=== PATIENT | female | born 1945 | race Caucasian/White ===

== ENCOUNTER 2018-06-05 05:12 | Emergency (ER) | payer MEDICARE, OTHER ==
--- NOTE | 2018-06-05 05:52 | ER Document Report ---
ED Medical Screen (RME) - General Chief Complaint: Back Pain Stated Complaint: BACK PAIN Time Seen by Provider: 06/05/18 05:39 Mode of Arrival: Medic Information source: Patient Notes: Patient is a 72-year-old female who presents with chief complaint of low back pain. Patient reports history of chronic low back pain. Patient reports she took hydrocodone 5 mg at 1 AM with no relief. Patient denies direct trauma or any loss of bowel or bladder. Patient reports a similar episode occurred last after she tried moving some furniture. Patient reported that her pain eventually resolved with several doses of her hydrocodone. Patient reports this pain is no different than her usual pain. Exam: Tenderness to palpation across the lumbar spine. No neurological deficits noted. Equal strength in all extremities. Lung sounds clear to auscultation bilaterally. I have greeted and performed a rapid initial assessment of this patient. A comprehensive ED assessment and evaluation of the patient, analysis of test results and completion of the medical decision making process will be conducted by additional ED providers. Dictation of this chart was performed using voice recognition software; therefore, there may be some unintended grammatical errors. TRAVEL OUTSIDE OF THE [place] IN LAST 30 DAYS: No - Related Data Allergies/Adverse Reactions: azithromycin [From Zithromax Z-Quan] Allergy (Verified 06/17/14 22:53) clindamycin HCl [From Cleocin] Allergy (Verified 06/17/14 22:53) clindamycin palmitate HCl [From Cleocin] Allergy (Verified 06/17/14 22:53) clindamycin phosphate [From Cleocin] Allergy (Verified 06/17/14 22:53) Past Medical History - Past Medical History Cardiac Medical History: Reports: Hx Heart Attack - 05/31/14, Hx Hypercholesterolemia Musculoskeltal Medical History: Reports Hx Arthritis Past Surgical History: Reports: Hx Cardiac Surgery - Double bypass - Immunizations Hx Diphtheria, Pertussis, Tetanus Vaccination: Yes Physical Exam - Vital signs Vitals: Temp Pulse Resp BP Pulse Ox 98.5 F 66 16 151/45 H 98 06/05/18 05:18 06/05/18 05:18 06/05/18 05:18 06/05/18 05:18 06/05/18 05:18 Course - Vital Signs Vital signs: Temp Pulse Resp BP Pulse Ox 98.5 F 66 16 151/45 H 98 06/05/18 05:18 06/05/18 05:18 06/05/18 05:18 06/05/18 05:18 06/05/18 05:18 Doctor's Discharge - Discharge Referrals: WILLIAM DUPREE MD [Primary Care Provider] - Follow up as needed
--- NOTE | 2018-06-05 06:43 | ER Document Report ---
ED General - General Mode of Arrival: Ambulatory Information source: Patient TRAVEL OUTSIDE OF THE [place] IN LAST 30 DAYS: No <SALENA JOSUE - Last Filed: 06/05/18 15:53> <DANK CAPUTO - Last Filed: 06/05/18 15:54> - General Chief Complaint: Back Pain Stated Complaint: BACK PAIN Time Seen by Provider: 06/05/18 05:39 Notes: Patient is a 72 year old female with chronic back pain, arthritis, high cholesterol and a history of open heart surgery presents to the emergency department complaining of back and neck pain with associated symptoms of nausea , vomiting, abdominal pain, bilateral arm weakness and diaphoresis. Patient states her symptoms were onset last night around 1999 further stating the pain started in her neck and radiated down her back, left hip and left leg just above her knee. She states she had similar symptoms 5 days ago after she moved a couch although her symptoms were alleviated after rest and taking hydrocodone. . She states she took a hydrocodone around 0100 this morning but it did not alleviate her pain. Patient denies any recent trauma or bladder or bowel dysfunction. She does state however her memory has not been the same since she went into cardiac arrest in the past. Patient mentions having a scheduled bilateral hip replacement. Her stuffed casing tier is Dr. Khalil at [facility] and her PCP is Dr. Wong. (SALENA JOSUE) - Related Data Allergies/Adverse Reactions: azithromycin [From Zithromax Z-Quan] Allergy (Verified 06/17/14 22:53) clindamycin HCl [From Cleocin] Allergy (Verified 06/17/14 22:53) clindamycin palmitate HCl [From Cleocin] Allergy (Verified 06/17/14 22:53) clindamycin phosphate [From Cleocin] Allergy (Verified 06/17/14 22:53) Past Medical History - General Information source: Patient - Social History Smoking Status: Former Smoker Chew tobacco use (# tins/day): No Frequency of alcohol use: None Drug Abuse: None Family History: Reviewed & Not Pertinent Patient has suicidal ideation: No Patient has homicidal ideation: No - Past Medical History Cardiac Medical History: Reports: Hx Heart Attack - 05/31/14, Hx Hypercholesterolemia Musculoskeletal Medical History: Reports Hx Arthritis Past Surgical History: Reports: Hx Cardiac Surgery - Double bypass - Immunizations Hx Diphtheria, Pertussis, Tetanus Vaccination: Yes <LIAT,TAMDEMETRIA - Last Filed: 06/05/18 15:53> Review of Systems - Review of Systems Constitutional: See HPI, Diaphoresis EENT: No symptoms reported Cardiovascular: No symptoms reported Respiratory: No symptoms reported Gastrointestinal: See HPI, Abdominal pain, Nausea, Vomiting Genitourinary: No symptoms reported Female Genitourinary: No symptoms reported Musculoskeletal: See HPI, Back pain, Neck pain Skin: No symptoms reported Hematologic/Lymphatic: No symptoms reported Neurological/Psychological: See HPI, Weakness -: Yes All other systems reviewed and negative <SALENA JOSUE - Last Filed: 06/05/18 15:53> Physical Exam <SALENA JOSUE - Last Filed: 06/05/18 15:53> <DANK CAPUTO - Last Filed: 06/05/18 15:54> - Vital signs Vitals: Temp Pulse Resp BP Pulse Ox 98.5 F 66 16 151/45 H 98 06/05/18 05:18 06/05/18 05:18 06/05/18 05:18 06/05/18 05:18 06/05/18 05:18 - Notes Notes: GENERAL: Alert, appears uncomfortable with movement. No respiratory distress. HEAD: Normocephalic, atraumatic. EYES: Pupils equal, round, and reactive to light. Extraocular movements intact. ENT: Oral mucosa moist, tongue midline. NECK: Full range of motion. Supple. Trachea midline. LUNGS: Tachypneic. Clear to auscultation bilaterally, no wheezes, rales, or rhonchi. No respiratory distress. HEART: Regular rate and rhythm. No murmurs, gallops, or rubs. ABDOMEN: Soft, non-tender. Non-distended. Bowel sounds present in all 4 quadrants. EXTREMITIES: Moves all 4 extremities spontaneously. 5/5 great toe raising, FROM of BLE, sensations intact. No edema, radial and dorsalis pedis pulses 2/4 bilaterally. No cyanosis. NEUROLOGICAL: Alert and oriented x3. Normal speech. PSYCH: Normal affect, normal mood. SKIN: Warm, dry, normal turgor. No rashes or lesions noted. BACK: No CVA tenderness to percussion, no step-offs or deformities, no midline bony tenderness to palpation. (SALENA JOSUE) Course - Laboratory Result Diagrams: 06/05/18 07:05 06/05/18 07:05 <SALENA JOSUE - Last Filed: 06/05/18 15:53> - Laboratory Result Diagrams: 06/05/18 07:05 06/05/18 07:05 <DANK CAPUTO - Last Filed: 06/05/18 15:54> - Re-evaluation Re-evalutation: 06/05/18 13:25 CBC shows slight leukocytosis 11.0, hemoglobin is slightly low at 11.8, chemistries grossly unremarkable, cardiac enzymes negative, urinalysis shows large leukocyte esterase and only 6 squamous epithelial cells, this is sent for culture, x-rays of thoracic and lumbar spine show minimal height loss of T11 chronicity is indeterminate, patient states she is known about this for at least 10 years so this is unlikely to be the cause of her pain. CT scan of the abdomen pelvis was ordered given the degree of pain that she is having particularly in her lower abdomen, this was negative. Pain, sweats and vomiting all appear to be coming from the urinary tract infection however there is no evidence of pyelonephritis on CAT scan. Patient was given Rocephin. Patient's pain was treated with morphine and Dilaudid, pain is now down to 2 out of 5. Discussed with patient and daughter that the patient may need hospitalization if she does not respond to the antibiotics within the next 48 hours. Patient is to return for pain that is not controlled by her home pain medications, fevers or any new or concerning symptoms. (DANK CAPUTO) - Vital Signs Vital signs: Temp Pulse Resp BP Pulse Ox 98.5 F 66 13 130/94 H 94 06/05/18 05:18 06/05/18 05:18 06/05/18 13:00 06/05/18 12:01 06/05/18 13:00 - Laboratory Laboratory results interpreted by me: 06/05/18 06/05/18 06/05/18 07:05 07:05 07:42 WBC 11.0 H Hgb 11.8 L Hct 33.6 L Absolute Neutrophils 8.5 H BUN 23 H Glucose 127 H Ur Leukocyte Esterase LARGE H Urine Ascorbic Acid 40 H - EKG Interpretation by Me Additional EKG results interpreted by me: 06/05/18 13:30 EKG shows sinus rhythm rate of 61, left axis deviation, normal intervals, no ST segment elevations or depressions, there is T-wave flattening in V3 and T-wave inversions V4 through V6 per my interpretation. (DANK CAPUTO) Discharge <SALENA JOSUE - Last Filed: 06/05/18 15:53> <DANK CAPUTO - Last Filed: 06/05/18 15:54> - Discharge Clinical Impression: Urinary tract infection Qualifiers: Urinary tract infection type: acute cystitis Hematuria presence: without hematuria Qualified Code(s): N30.00 - Acute cystitis without hematuria Condition: Stable Disposition: HOME, SELF-CARE Additional Instructions: Urinary Tract Infection Your evaluation indicates that you have a urinary tract infection. This is due to germs growing in the bladder. This is a common problem. This infection usually responds quickly to antibiotics. Your antibiotic should be taken exactly as prescribed. Drink plenty of fluids -- three to four quarts a day. Occasionally, a bladder anesthetic will be prescribed to help stop the feeling of urgency until the antibiotic has a chance to clear the infection. This may cause your urine to be dark orange. Certain urine infections require a culture. If the doctor obtained a culture, the results will be back in two days. You should call to see if a change in treatment is needed. A repeat urinalysis after you finish treatment is often recommended. The physician will let you know if further testing is required. Call the doctor if you develop fever, chills, flank pain, inability to urinate, or blood in the urine. Prescriptions: Cephalexin Monohydrate [Keflex 500 mg Capsule] 500 mg PO Q6H 5 Days capsule Phenazopyridine HCl [Pyridium 100 Mg Tablet] 100 mg PO TID #6 tablet Referrals: WILLIAM DUPREE MD [Primary Care Provider] - Follow up as needed Scribe Attestation: 06/05/18 15:54 I personally performed the services described in the documentation, reviewed and edited the documentation which was dictated to the scribe in my presence, and it accurately records my words and actions. (DANK CAPUTO) Scribe Documentation - Scribe Written by Caro:: Caro Simmons, 06/05/2018 06:56 acting as scribe for :: Josiah <SALENA JOSUE - Last Filed: 06/05/18 15:53>
[2018-06-05 07:32] LABS: ABSOLUTE EOSINOPHILS # (AUTO) 0.3 10^3/uL (0.0-0.6); ABSOLUTE LYMPHOCYTES (AUTO) 1.5 10^3/uL (0.5-4.7); ABSOLUTE MONOCYTES (AUTO) 0.6 10^3/uL (0.1-1.4); ABSOLUTE NEUT (AUTO) 8.5 10^3/uL (1.7-8.2); BASOPHILS % (AUTO) 0.3 % (0-2); EOSINOPHILS % (AUTO) 2.9 % (0-6); HEMATOCRIT 33.6 % (36.0-47.0); HEMOGLOBIN 11.8 g/dL (12.0-15.5); LYMPHOCYTES % (AUTO) 13.6 % (13-45); MEAN CORPUSCULAR HEMOGLOBIN 31.5 pg (27.0-33.4); MEAN CORPUSCULAR HGB CONC 35.1 g/dL (32.0-36.0); MEAN CORPUSCULAR VOLUME 90 fl (80-97); MONOCYTES % (AUTO) 5.3 % (3-13); PLATELET COUNT 191 10^3/uL (150-450); RED BLOOD COUNT 3.74 10^6/uL (3.72-5.28); RED CELL DISTRIBUTION WIDTH 12.8 % (11.5-14.0); SEGMENTED NEUTROPHILS % (AUTO) 77.9 % (42-78); TOTAL CELLS COUNTED % (AUTO) 100 %
[2018-06-05 07:39] LABS: ALANINE AMINOTRANSFERASE 25 U/L (9-52); ALBUMIN 3.8 g/dL (3.5-5.0); ALKALINE PHOSPHATASE 104 U/L (38-126); ANION GAP 12 (5-19); ASPARTATE AMINO TRANSFERASE 29 U/L (14-36); BILIRUBIN,DIRECT 0.3 mg/dL (0.0-0.4); BILIRUBIN,TOTAL 0.5 mg/dL (0.2-1.3); BLOOD UREA NITROGEN 23 mg/dL (7-20); CALCIUM 9.2 mg/dL (8.4-10.2); CARBON DIOXIDE 24 mmol/L (22-30); CHLORIDE 101 mmol/L (98-107); CREATINE KINASE 102 U/L (30-135); GLUCOSE 127 mg/dL (75-110); SODIUM 137.3 mmol/L (137-145); TOTAL PROTEIN 6.4 g/dL (6.3-8.2)
[2018-06-05] MEDS ORDERED: OXYCODONE-ACETAMINOPHEN 5-325 MG TABLET PO ONE (07:49)
[2018-06-05 07:58] LABS: CREATINE KINASE MB 1.66 ng/mL (<4.55)
[2018-06-05 07:59] LABS: TROPONIN I < 0.012 ng/mL
--- NOTE | 2018-06-05 08:51 | EKG REPORT ---
SEVERITY:- ABNORMAL ECG - SINUS RHYTHM PROBABLE LEFT ATRIAL ABNORMALITY LEFT AXIS DEVIATION ABNORMAL T, CONSIDER ISCHEMIA, LATERAL LEADS VS LVH : Confirmed by: Jeyson Hoffman 05-Jun-2018 08:50:43
--- NOTE | 2018-06-05 09:10 | RADIOLOGY REPORT (SQ) ---
EXAM DESCRIPTION: T SPINE AP/LAT COMPLETED DATE/TIME: 06/05/2018 8:55 am REASON FOR STUDY: worsening back ain afer lifting a couch COMPARISON: None. NUMBER OF VIEWS: Two views. TECHNIQUE: AP and lateral radiographic images acquired of the thoracic spine. LIMITATIONS: None. FINDINGS: MINERALIZATION: Normal. ALIGNMENT: Normal. No scoliosis. VERTEBRAE: On the AP projection there is a slight decrease in height of the T 11 vertebral body on th e right. Not visualized on the lateral projection. DISCS: Thoracic disc spaces well maintained. Moderate to severe disc degeneration L1-L2 on the left. HARDWARE: None in the spine. MEDIASTINUM AND SOFT TISSUES: Normal heart size and aortic contour. No soft tissue abnormality. VISUALIZED LUNG DE LA O: Clear. OTHER: Lateral projection for visualization of the proximal thoracic spine includes the cervical spi ne where there is minimal anterolisthesis C3 with respect C4 and moderately advanced spondylotic dat nge C5-C6. IMPRESSION: Slight decrease in height of the T11 vertebral body on the AP projection. Age indetermi john. See other above findings. TECHNICAL DOCUMENTATION: JOB ID: [id number] [employer]- All Rights Reserved Reading location - IP/workstation name: [email or web address]
--- NOTE | 2018-06-05 09:14 | RADIOLOGY REPORT (SQ) ---
EXAM DESCRIPTION: L SPINE WHOLE COMPLETED DATE/TIME: 06/05/2018 8:55 am REASON FOR STUDY: worsening back ain afer lifting a couch COMPARISON: None. NUMBER OF VIEWS: Five views including obliques. TECHNIQUE: AP, lateral, oblique, and sacral radiographic images acquired of the lumbar spine. LIMITATIONS: None. FINDINGS: MINERALIZATION: Normal. SEGMENTATION: Normal. No transitional anatomy. ALIGNMENT: Minimal anterolisthesis L3 with respect L4 VERTEBRAE: No compression fractures DISCS: Moderate disc degeneration L1-L2 POSTERIOR ELEMENTS: Pedicles and facets are intact. No pars defect or posterior arch defects. HARDWARE: None in the spine. PARASPINAL SOFT TISSUES: Normal. PELVIS: Intact as visualized. No fractures or worrisome bone lesions. SI joints intact. OTHER: No other significant finding. IMPRESSION: No acute posttraumatic changes. Mild anterolisthesis L3 with respect L4. Moderate disc degeneration L1-L2 TECHNICAL DOCUMENTATION: JOB ID: [id number] [employer]- All Rights Reserved Reading location - IP/workstation name: [email or web address]
[2018-06-05] MEDS ORDERED: ONDANSETRON HCL INJ/PF 4 MG/2 ML SDV IV ONE (09:41)
[2018-06-05] MEDS ORDERED: MORPHINE SULFATE 10 MG/ML INJ IV ONE (09:41)
[2018-06-05 10:40] LABS: APPEARANCE,URINE SLIGHTLY-CLOUDY; BILIRUBIN,URINE NEGATIVE (NEGATIVE); COLOR,URINE YELLOW; GLUCOSE, URINE NEGATIVE (NEGATIVE); KETONES,URINE NEGATIVE (NEGATIVE); LEUKOCYTE ESTERASE,URINE LARGE (NEGATIVE); NITRITE,URINE NEGATIVE (NEGATIVE); PROTEIN,URINE NEGATIVE (NEGATIVE); UROBILINOGEN,URINE NEGATIVE mg/dL (<2.0)
[2018-06-05] MEDS ORDERED: CEFTRIAXONE 1 GM/D5W RTU 1 GM/50 ML RTUPB IV ONE (10:50)
[2018-06-05] MEDS ORDERED: CEFTRIAXONE INJ 1000 MG VIAL ONE (11:09)
[2018-06-05] MEDS ORDERED: HYDROMORPHONE HCL INJ/PF 2 MG/ML AMPULE IV ONE ×2 (11:30→12:24)
--- NOTE | 2018-06-05 11:30 | RADIOLOGY REPORT (SQ) ---
EXAM DESCRIPTION: CT ABD/PELVIS WITH IV ONLY COMPLETED DATE/TIME: 06/05/2018 11:10 am REASON FOR STUDY: low abd pain, nausea and vomiting COMPARISON: None. TECHNIQUE: CT scan of the abdomen and pelvis performed using helical scanning technique with dynamic intravenous contrast injection. No oral contrast. Images reviewed with lung, soft tissue, and bone windows. Reconstructed coronal and sagittal MPR images reviewed. Delayed images for evaluation of the urinary system also acquired. All images stored on PACS. All CT scanners at this facility use dose modulation, iterative reconstruction, and/or weight based d osing when appropriate to reduce radiation dose to as low as reasonably achievable (ALARA). [facility]: Dose Right [facility]: CareDose [facility]: Dose Right [facility]: Teradose 4D [facility]: Tackk CONTRAST TYPE AND DOSE: contrast/concentration: Isovue 350.00 mg/ml; Total Contrast Delivered: 69.0 ml; Total Saline Delivered: 65.0 ml 69 cc Isovue 370- low osmolar. RENAL FUNCTION: GFR > 60. RADIATION DOSE: CT Rad equipment meets quality standard of care and radiation dose reduction techniq ues were employed. CTDIvol: 7.4 - 10.5 mGy. DLP: 951 mGy-cm.. LIMITATIONS: None. FINDINGS: LOWER CHEST: No significant findings. No nodules or infiltrates. LIVER: 2 cm benign hepatic cyst anteriorly. No solid lesions. SPLEEN: Normal size. No focal lesions. PANCREAS: No masses. No significant calcifications. No adjacent inflammation or peripancreatic fluid collections. Pancreatic duct not dilated. GALLBLADDER: Gallstones. No inflammatory changes to suggest cholecystitis. ADRENAL GLANDS: No significant masses or asymmetry. RIGHT KIDNEY AND URETER: No solid masses. No significant calcifications. No hydronephrosis or hyd roureter. LEFT KIDNEY AND URETER: No solid masses. No significant calcifications. No hydronephrosis or hydr oureter. AORTA AND VESSELS: No aneurysm. No dissection. Renal arteries, SMA, celiac without stenosis. RETROPERITONEUM: No retroperitoneal adenopathy, hemorrhage or masses. BOWEL AND PERITONEAL CAVITY: No masses or inflammatory changes. No free fluid or peritoneal masses. APPENDIX: Normal. PELVIS: No mass. No free fluid. Normal bladder. ABDOMINAL WALL: No masses. No hernias. BONES: Severe osteoarthritic change both hips reflected by near complete obliteration of each hip pablito nt and associated degenerative sclerotic change and subchondral cystic formation. Severe disc degene ration L1-L2. OTHER: No other significant finding. IMPRESSION: Cholelithiasis. No acute or significant abdominal or pelvic pathology to explain the pa velvet's clinical symptoms. Incidental finding is severe osteoarthritic change both hips and severe d isc degeneration L1-L2. TECHNICAL DOCUMENTATION: JOB ID: [id number] Quality ID # [id number]: Final reports with documentation of one or more dose reduction techniques (e.g., Au tomated exposure control, adjustment of the mA and/or kV according to patient size, use of iterative reconstruction technique) 2010 [employer]- All Rights Reserved Reading location - IP/workstation name: [email or web address]
[2018-06-05] MEDS ORDERED: PHENAZOPYRIDINE HCL 200 MG TABLET PO ONE (11:54)
[2018-06-05 13:49] VITALS: BP 130/94
== END 2018-06-05 13:48 | disposition home or self-care (01) ==
LOC: ER 05:12
DX: N30.00 Acute cystitis without hematuria (principal); M54.9 Dorsalgia, unspecified; G89.29 Other chronic pain; M54.2 Cervicalgia; R11.2 Nausea with vomiting, unspecified; R10.9 Unspecified abdominal pain; M62.81 Muscle weakness (generalized); R61 Generalized hyperhidrosis; M25.552 Pain in left hip; M79.605 Pain in left leg; Z79.899 Other long term (current) drug therapy; Z87.891 Personal history of nicotine dependence
CPT/HCPCS: 93005; 96376; 99284; 96374; 96375; 36415; 87040; 82553; 82550; 85025; 80053; 81001; 84484; 72110; 72070; 74177; 93010; J2270; A9270 ×2; J1170; J0696; J2405; J3490